=== PATIENT | female | born 1990 | race Caucasian/White ===

== ENCOUNTER 2020-10-05 23:11 | Emergency (ER) | payer OTHER ==
[2020-10-05 23:21] VITALS: TEMP 99.2; BMI 28.3
[2020-10-06 01:11] LABS: PH,URINE 6.5 (5.0-8.0); URINE APPEARANCE CLEAR; URINE BILIRUBIN NEGATIVE (NEGATIVE); URINE COLOR YELLOW; URINE GLUCOSE (UA) NEGATIVE (NEGATIVE); URINE KETONE NEGATIVE (NEGATIVE); URINE LEUK ESTERASE NEGATIVE (NEGATIVE); URINE NITRITE NEGATIVE (NEGATIVE); URINE PROTEIN TRACE (NEGATIVE)
[2020-10-06 01:15] LABS: BASO % 0.5 % (0-2.0); EOS % 2.9 % (0-4.5); MCH 16.7 pg (25.7-33.7); MCHC 28.9 g/dl (32.0-36.0); MEAN PLT VOLUME 8.7 fl (7.5-11.1); MONO % 10.4 % (3.8-10.2); NEUT % 69.2 % (42.8-82.8); PLATELET COUNT 366 K/MM3 (134-434); RBC 3.96 M/mm3 (3.60-5.2); RDW 18.5 % (11.6-15.6); WHITE BLOOD COUNT 12.1 K/mm3 (4.0-10.0)
[2020-10-06 01:18] LABS: HEMOGLOBIN 6.6 GM/dL (10.7-15.3)
[2020-10-06 01:26] LABS: ALBUMIN 3.5 g/dl (3.4-5.0); CALCIUM 8.4 mg/dL (8.5-10.1)
[2020-10-06 01:30] LABS: CREATININE 0.5 mg/dL (0.55-1.3)
[2020-10-06 01:31] LABS: BILIRUBIN,TOTAL 0.2 mg/dL (0.2-1); TOT PROT 7.1 g/dl (6.4-8.2)
[2020-10-06 02:23] VITALS: BP 138/74; PULSE 78
[2020-10-06] MEDS ORDERED: KETOROLAC TROMETHAMINE 60 MG/2 ML VIAL IM ONE (03:14)
[2020-10-06] MEDS ORDERED: KETOROLAC TROMETHAMINE 60 MG/2 ML VIAL ONE (03:17)
[2020-10-06 05:16] LABS: ANISOCYTOSIS 2+; MACROCYTOSIS 0; OVALOCYTE 1+; PLATELET ESTIMATE NORMAL; TEAR DROP CELLS 1+
== END 2020-10-06 03:37 | disposition home or self-care (01) ==
LOC: FER 23:11
PROC: 3E0233Z Introduction of Anti-inflammatory into Muscle, Percutaneous Approach (ICD-10-PCS; principal; 2020-10-05)
DX: R10.2 Pelvic and perineal pain (principal); D64.9 Anemia, unspecified
CPT/HCPCS: 36415; 76830-TC; 80053; 81003; 84702; 85025; 99284-25

== ENCOUNTER 2024-02-24 07:50 | Inpatient (IN) | payer OTHER ==
[2024-02-24 08:53] VITALS: BMI 38.4
[2024-02-24] MEDS: ELECTROLYTE-148 SOLN 500 ML IV ONE (09:00)
[2024-02-24] MEDS: CITRIC ACID/SODIUM CITRATE 30 ML UNIT-DOSE CUP PO ONE (09:00)
[2024-02-24] MEDS: ELECTROLYTE-148 SOLN 1,000 ML IV SCH (10:45)
[2024-02-24] MEDS ORDERED: ONDANSETRON 4 MG/2 ML VIAL IVPUSH PRN (11:05)
[2024-02-24] MEDS ORDERED: morphine SULFATE/PF 1 MG/2 ML (2cc Syringe - QUVA) ONE (11:12)
[2024-02-24] MEDS ORDERED: FENTANYL CITRATE/PF 50 MCG/ML VIAL ONE (11:12)
[2024-02-24] MEDS ORDERED: ceFAZolin SODIUM 1 GM VIAL ONE (11:32)
[2024-02-24] MEDS ORDERED: LIGASURE IMPACT TP ONE (11:40)
[2024-02-24] MEDS ORDERED: OXYTOCIN 10 UNITS/ML VIAL ONE ×2 (12:02→12:08)
[2024-02-24 12:41] LABS: CORD BASE EXCESS -0.3 mmol/L (0-2); CORD HCO3 24.5 mmHg (20-29); CORD HCO3 24.9 mmHg (20-29); CORD PCO2 42.9 mmHg (30-78); CORD PCO2 51.5 mmHg (30-78); CORD pH 7.296 (7.14-7.44); CORD pH 7.382 (7.14-7.44)
[2024-02-24] MEDS ORDERED: IBUPROFEN 800 MG/8 ML IJ IVPB ONE (13:44)
[2024-02-24] MEDS: IBUPROFEN 800 MG/8 ML IJ IVPB PRN (13:50)
[2024-02-24] MEDS ORDERED: OXYTOCIN 20 UNITS in 0.9% NS 20 UNIT/1,000 ML INFUS.BAG IV ONE (14:54)
[2024-02-24] MEDS: OXYTOCIN 20 UNITS in 0.9% NS 20 UNIT/1,000 ML INFUS.BAG IV SCH (14:56)
[2024-02-24 15:40] VITALS: RESP 18
[2024-02-24] MEDS: ACETAMINOPHEN 325 MG TABLET (FP) PO PRN (18:39)
[2024-02-24] MEDS: RHO(D) IMMUNE GLOBULIN 1,500 UNIT DISP.SYRIN IM ONE (20:17)
[2024-02-25 08:03] LABS: BASO % 0.2 % (0-2.0); EOS % 1.1 % (0-4.5); HEMOGLOBIN 9.5 GM/dL (10.7-15.3); LYMPH % 12.7 % (8-40); MCH 25.3 pg (25.7-33.7); MCHC 32.8 g/dl (32.0-36.0); MEAN PLT VOLUME 7.9 fl (7.5-11.1); MONO % 7.4 % (3.8-10.2); NEUT % 78.6 % (42.8-82.8); PLATELET COUNT 187 10^3/uL (134-434); RBC 3.77 M/mm3 (3.60-5.2); RDW 17.2 % (11.6-15.6); WHITE BLOOD COUNT 12.6 K/mm3 (4.0-10.0)
[2024-02-25] MEDS: IBUPROFEN 600 MG TABLET (FP) PO PRN (12:01)
[2024-02-25] MEDS: SIMETHICONE 80 MG TAB.CHEW (FP) PO PRN (12:01)
[2024-02-25] MEDS ORDERED: BISACODYL 10 MG SUPP.RECT RC PRN (13:25)
[2024-02-25] MEDS: oxyCODONE HCL 5 MG TABLET PO PRN (19:43)
[2024-02-26] MEDS: FERROUS SO4 325 MG TABLET (FP) PO ONE (09:57)
[2024-02-27 08:22] LABS: BASO % 0.2 % (0-2.0); EOS % 1.9 % (0-4.5); HEMATOCRIT 30.7 % (32.4-45.2); HEMOGLOBIN 9.8 GM/dL (10.7-15.3); LYMPH % 17.4 % (8-40); MCH 25.3 pg (25.7-33.7); MCHC 32.1 g/dl (32.0-36.0); MEAN CELL VOLUME 78.8 fl (80-96); MEAN PLT VOLUME 8.1 fl (7.5-11.1); MONO % 6.5 % (3.8-10.2); PLATELET COUNT 253 10^3/uL (134-434); RBC 3.89 M/mm3 (3.60-5.2); RDW 16.7 % (11.6-15.6); WHITE BLOOD COUNT 11.5 K/mm3 (4.0-10.0)
[2024-02-27 11:51] VITALS: BP 123/69; PULSE 65; TEMP 98.2
== END 2024-02-27 14:15 | disposition home or self-care (01) | DRG 540 ==
LOC: JLDR 07:50 → J3W 15:10
PROVIDERS: ADMIT Student in an Organized Health Care Education/Training Program; ATTEND Student in an Organized Health Care Education/Training Program
PROC: 10D00Z1 Extraction of Products of Conception, Low, Open Approach (ICD-10-PCS; principal; 2024-02-24)
PROC: 0UT70ZZ Resection of Bilateral Fallopian Tubes, Open Approach (ICD-10-PCS; 2024-02-24)
PROC: 0UB90ZZ Excision of Uterus, Open Approach (ICD-10-PCS; 2024-02-24)
DX: O32.1XX0 Maternal care for breech presentation, not applicable or unspecified (principal); O34.13 Maternal care for benign tumor of corpus uteri, third trimester; O34.219 Maternal care for unspecified type scar from previous cesarean delivery; Z3A.39 39 weeks gestation of pregnancy; Z37.0 Single live birth; Z30.2 Encounter for sterilization
CPT/HCPCS: 36415; 36600; 59409; 80053; 81003; 82803; 85025; 85461; 85610; 86780; 86850; 86900; 86901; 88305-TC; 88307-TC; 94010; 96372; J2790